=== PATIENT | male | born 1935 | race Caucasian/White ===

== ENCOUNTER → 2016-10-24 | Outpatient (CLI) | payer MEDICARE, BC ==
[~2016-10-24] MED LIST: ASPIRIN PO; ASPIRIN81 M2 PO; AVODART0.5 MG PO; BAYER CHEWABLE81 MG PO; BENTYL10 MG PO; BENTYL20 MG PO; BETAPACE PO; BETAPACE80 MG PO; BUDESONIDE EC3 MG PO; CIPRO PO; CLOPIDOGREL75 MG PO; COZAAR PO; ELIQUIS2.5 MG PO; ELIQUIS5 MG PO; ENTOCORT EC3 MG PO; FINASTERIDE5 M1 PO; FINASTERIDE5 MG PO; FLOMAX0.4 M1 PO; FLOMAX0.4 MG PO; FOLIC ACID1 MG PO; HYDROXYZINE HCL10 MG PO; IBUPROFEN PO; IMDUR-ER60 MG PO; LIPITOR PO; LIPITOR20 MG PO; LORTAB 7.5-5001 TAB PO; LOSARTAN POTASS50 MG PO; METHSCOPOLAMINE5 MG PO; NITROGLYCERIN0.4 MG SL; NITROGYLCERIN; PEPCID AC20 M2 PO; PHENERGAN PO; PYRIDIUM PO; SORINE80 MG PO; ST. JOSEPH ASPI81 M3 PO; TOPROL XL PO
--- NOTE | ~2016-10-24 | US77 ---
STS. [facility] A Service of [facility] & [facility] / [facility] RADIOLOGY TEXT RESULTS PATIENT: BETTIE GIANG LOCATION: [facility] : 35 UNIT #: [id number] AGE: [address]: Bhanu Clark MD SEX: M ORDER DR: [id number] [address] [address] [id number] O MR#: [id number] Acc #: [id number] NAME: BETTIE GIANG : 1935 SEX: M STUDY DATE/TIME: 10/24/2016 12:50 UNIT: SG ROOM: STUDY DESCRIPTION: US Kidney Bilateral Complete Attending Physician: Bhanu Clark M.D. Referring Physician: Bhanu Clark M.D. Ordering Physician: Bhanu Clark M.D. Primary Care Physician: Milton Randall M.D. MEDICAL IMAGING REPORT This report is preliminary unless electronic signature is present. EXAM Renal ultrasound. INDICATION Chronic kidney disease stage 3. Patient had blood work done on March 04, 2016 and at that time had a GFR of 30. TECHNIQUE Mas-scale and color Doppler sonographic images were obtained through the kidneys and bladder. FINDINGS The kidneys measure within the within normal size limits but both demonstrate areas of cortical thinning. Senior Power Scheduler questions dilated calices however I think the appearance is actually secondary to parapelvic cysts. No solid renal masses are seen. Bilateral ureteral jets are seen. Patient does have some prominence of the right renal pelvis which persists postvoid however, again this may be related to the presence of parapelvic cysts. Postvoid residual within the bladder is about 19 mL. IMPRESSION 1. Patient has cortical thinning within both kidneys in keeping with history of medical renal disease. 2. Senior Power Scheduler questions dilated calices bilaterally. I suspect this could reflect the presence of parapelvic cysts based upon prior imaging. This could be better assessed with renal protocol CT or MRI. I do not see any definite solid renal masses. 3. Prominence of the left renal pelvis following voiding may actually again, reflect a parapelvic cyst. Again, CT or MRI would be helpful for further evaluation. 4. Small postvoid residual. [facility] A Service of [facility] & [facility] / [facility] RADIOLOGY TEXT RESULTS PATIENT: BETTIE GIANG LOCATION: [facility] : 35 UNIT #: [id number] AGE: [address]: Bhanu Clark MD SEX: M ORDER DR: Dictated by... Julianne Castro M.D. THIS IS AN ELECTRONICALLY VERIFIED REPORT Julianne Castro M.D. at 10/26/2016 3:03 PM AFF/alem TD: 10/26/2016 05:00 JOB #: [id number] MEDICAL IMAGING REPORT Page 1 of 1
[2016-10-24 13:34] LABS: BASOPHIL% 0.3 % (0-2.5); EOSINOPHIL# 0.2 X10e3 (0-0.7); EOSINOPHIL% 3.2 % (0.0-7.0); HEMATOCRIT 32.8 % (38.0-50.0); HEMOGLOBIN 10.8 gm/dL (13.0-16.0); LYMPHOCYTE# 1.7 X10e3 (1.0-3.5); LYMPHOCYTE% 28.7 % (17.0-45.0); MEAN CELL VOLUME 95.6 FL (83-96); MEAN CORPUSCULAR HEMOGLOBIN 31.6 PG (28-34); MEAN PLATELET VOLUME 6.8 FL (6.5-11.5); MONOCYTE# 0.5 X10e3 (0-1.0); MONOCYTE% 7.8 % (3.0-12.0); NEUTROPHIL# 3.5 X10e3 (1.5-7.1); PLATELET COUNT 193 X10e3 (140-420); RED BLOOD COUNT 3.43 X10e (3.90-5.60); RED CELL DISTRIBUTION WIDTH 13.7 % (11.0-15.5); WHITE BLOOD COUNT 5.9 X10e3 (4.0-10.5)
[2016-10-24 13:37] LABS: URINE APPEARANCE CLEAR; URINE BILIRUBIN NEG (NEG); URINE BLOOD NEG (NEG); URINE COLOR YELLOW; URINE GLUCOSE NEG (NORM); URINE KETONE NEG (NEG); URINE LEUKOCYTE ESTERASE NEG (NEG); URINE NITRATE NEG (NEG); URINE PROTEIN NEG (NEG); URINE UROBILINOGEN 0.2 MG/DL (NORM)
[2016-10-24 13:40] LABS: DIFF IND NO
[2016-10-24 13:41] LABS: MICRO INDICATED? NO
[2016-10-24 13:51] LABS: BILIRUBIN,TOTAL 0.5 mg/dL (0.2-2.0); BUN/CREATININE RATIO 23.68; CALCIUM SERUM 9.1 mg/dL (8.4-10.2); CREATININE SERUM 1.9 mg/dL (0.6-1.4); GLOM FILT RATE Estimated 32.3 mL/min (>60); POTASSIUM 4.6 mmol/L (3.5-5.1); PROTEIN TOTAL SERUM 6.5 g/dL (6.0-8.3)
[2016-10-26 10:44] LABS: MICROALB UR (PNL) 1.1 mg/dL (***)
== END | disposition home or self-care (01) ==
LOC: SGUS 12:35
PROVIDERS: Internal Medicine Nephrology
DX: N18.3 Chronic kidney disease, stage 3 (moderate) (principal); R39.198 Other difficulties with micturition
CPT/HCPCS: 36415; 76775; 80053; 81003; 82043; 82570; 85025

== ENCOUNTER 2016-10-31 10:04 | Observation (INO) | payer MEDICARE, BC ==
--- NOTE | ~2016-10-31 | HP ---
Unit #: [id number] #: [id number] Patient: BETTIE HOLLOWAY [id number] [address] [place], [place] [address] [id number] E MR#: [id number] NAME: BETTIE HOLLOWAY ROOM: Age: 81 Sex: M Admission Date: 10/31/2016 : 1935 Attending Physician: Neto Lo M.D. Primary Care Physician: Milton Randall M.D. HISTORY AND PHYSICAL REASON FOR ADMISSION Chest pain. HISTORY Mr. Holloway is an 81-year-old white male who was walking on his treadmill for his daily exercise routine when he started complaining of pain in the right parasternal region and he slowed down his walking with the pain only to restart with a vengeance and the pain became so severe that he could not continue his exercise. There was some radiation of the pain to the left anterior chest, it was accompanied by mild nausea, mild dizziness, mild diaphoresis and dyspnea. He took 325 mg of aspirin and an extra dose of metoprolol succinate and decided to come to the emergency room. He was evaluated by Dr. Lo and we were asked to admit him. The patient had not had a similar pain in the last two to three years. He exercised on a regular basis, had not complained of any palpitations, dizziness, lightheadedness, ankle edema, orthopnea, nocturnal dyspnea, nocturnal angina or rest angina. He considers himself reasonably active. Recently his renal functions have found to be abnormal and patient was referred to Dr. Clark from nephrology service who planned to see him again today for re-evaluation. The patient's cardiac history dates back to 2000 when he suffered an acute inferior wall myocardial infarction and underwent successful PCI and stent insertion on right coronary artery, which was found to have an in-stent 80 to 90% stenosis in 2009 and he had a redo angioplasty stent insertion and right coronary artery at that time. Because of recurrent chest pain in 2011 he had a cardiac catheterization performed, which showed widely patient stent in right coronary artery and the left coronary system showed no significant stenosis. Since that time, the patient had been doing reasonably well. He has not had any diabetes mellitus. His lipid abnormalities have been under good control and systolic function has been normal with ejection fraction of about 50%. The patient is known to have paroxysmal atrial fibrillation and is maintained a normal sinus rhythm with sotalol and long-term anticoagulation with Eliquis. Does not smoke or abuse alcohol. He denies any history of strokes, transient ischemia attacks, rheumatic fever or heart murmur. SOCIAL AND PERSONAL HISTORY He stopped smoking a number of years ago and does not abuse alcohol. FAMILY HISTORY His mother had an MA in her 60s. PHYSICAL EXAMINATION Unit #: [id number] #: [id number] Patient: BETTIE HOLLOWAY GENERAL: Reveals an elderly male in no acute distress. NECK: There is no jugular venous distention, both carotids have a normal upstroke without any bruits. There is trace of ankle edema bilaterally. CARDIAC: Shows apical impulses palpable in fifth intercostal space and midclavicular line and is normal. Both heart sounds are normal. No rubs or clicks are audible. There is no murmur. CHEST: Chest examination shows tenderness along the third or fourth costochondral junction, which reproduces a pain that brought him to the hospital. There is good air entry bilaterally without any rales or rhonchi. ABDOMEN: Soft, nontender, anterior abdominal wall, there are no masses or organomegaly. RECTAL: No done. BREAKFAST SERVER: Within normal limits. DIAGNOSTIC STUDIES LABORATORY STUDIES: Serum BUN is 25, creatinine 2.0, GFR 30.4. Potassium 4.1, magnesium 1.8. Cardiac enzymes at the time of admission were normal with troponin of 0.05. Repeat cardiac enzymes are awaited. Electrocardiogram shows sinus bradycardia, evidence of old inferior wall MA with Q waves in leads II and AVF. Hemoglobin is 11.1, hematocrit 33.1, 5,100 white blood cells are seen with a normal differential. DIAGNOSIS 1. Chest pain secondary to costochondritis. 2. History of old inferior wall myocardial infarction. 3. Status post PCI with stent insertion right coronary artery 2000, redo PCI with stent insertion right coronary artery for in-stent 90% stenosis. Stent found to be patent in 2011. 4. Paroxysmal atrial fibrillation. 5. Hypertensive heart disease. 6. Mild chronic kidney disease. 7. Peripheral vascular disease. PLAN The patient will be admitted to the hospital for observation. I did repeat electrocardiograms and cardiac enzymes will be checked to rule out a myocardial infarction, which I doubt exists. An exercise Cardiolite scan would be done tomorrow to rule out any reversible perfusion abnormalities, in addition to his old inferior wall MA. Dr. Clark or his associates will be requested to see the patient in consult. Dictated by Juan Jose Moses/ewa TD: 10/31/2016 11:00 JOB #: [id number] CC: [facility] Unit #: [id number] #: [id number] Patient: BETTIE HOLLOWAY M.D. HISTORY AND PHYSICAL Page 1 of 1 X Ezra Worley MD X HISTORY AND PHYSICAL
--- NOTE | ~2016-10-31 | TH ---
Unit #: [id number] #: [id number] Patient: BETTIE GIANG [id number] [address] [address] [id number] I MR#: [id number] NAME: BETTIE GIANG. : 1935 SEX: M STUDY DATE/TIME: 11/01/2016 UNIT: C3A PCU ROOM: [facility] STUDY DESCRIPTION: Attending Physician: Ezra Worley M.D. Primary Care Physician: Milton Randall M.D. CARDIOLOGY REPORT EXAM Lexiscan Cardiolite stress test, nuclear portion. PROCEDURE Using technetium 99m labeled Cardiolite, rest and stress SPECT images were obtained. Multiple SPECT images were obtained in various views including horizontal and vertical long axis and short axis views of the left ventricle. Images were obtained by gated SPECT method. The patient was administered 11.97 mCi of Cardiolite at rest. The patient was administered 36 mCi of Cardiolite after Lexiscan infusion was completed. On the stress images, there is a medium-sized area of severe decreased isotope activity involving the inferior and the inferolateral wall of the left ventricle. The rest images show normal perfusion. Comparing rest and stress images, there is a medium-sized area of stress-induced ischemia involving the inferior and the inferolateral wall. The left ventricular ejection fraction is calculated to be 56%. There is mild hypokinesis of the inferolateral wall. CONCLUSION 1. Suspicion for a medium-sized area of stress-induced ischemia involving the inferolateral wall of the left ventricle. 2. The left ventricular ejection fraction is calculated to be 56%. 3. There is mild hypokinesis involving the inferolateral wall. 4. High suspicion for coronary artery disease. Suspicion for lesion involving the RCA or the circumflex territory. Clinical correlation is requested. Dictated by... Juan Jose Wallace TD: 11/01/2016 12:50 JOB #: [id number] Unit #: [id number] #: [id number] Patient: BETTIE GIANG CARDIOLOGY REPORT Page 1 of 1 X Deidre Vizcaino MD <ELECTRONICALLY SIGNED> 01/28/17 1428 CARDIOLOGY REPORT
--- NOTE | ~2016-10-31 | ST ---
Unit #: [id number] #: [id number] Patient: BETTIE GIANG [id number] [address] [address] [id number] I MR#: [id number] NAME: BETTIE GIANG. : 1935 SEX: M STUDY DATE/TIME: 11/01/2016 UNIT: C3A PCU ROOM: [facility] STUDY DESCRIPTION: Walking Lexiscan stress test Attending Physician: Ezra Worley M.D. Primary Care Physician: Milton Randall M.D. CARDIOLOGY REPORT PROCEDURE PERFORMED Lexiscan Cardiolite stress test. NOTE: It is noted the patient did attempt to do a regular Cardiolite stress test but was unable to achieve the maximum target heart rate within 7 minutes without the patient having fatigue, leg cramps and shortness of breath and could not reach his maximum target heart rate. Had to change to a Lexiscan Cardiolite stress test due leg cramps. REPORT Baseline EKG - Sinus bradycardia, heart rate 56 beats per minute, poor R wave progression, nonspecific ST-T wave abnormalities in inferior leads. Lexiscan is a 4-minute test with Lexiscan being injected within the first minute, followed by Cardiolite. FINDINGS 1. EKG during the test showed downsloping in inferior and anterolateral leads with 0.[address] depression in anterolateral leads. 2. The patient had no complaints of chest pain, palpitations or dizziness. Had increased shortness of breath and fatigue, which resolved in recovery phase. 3. Maximum blood pressure response was 157/83 mmHg with a maximum heart rate response of 76 beats per minute. 4. Cardiolite was injected after Lexiscan within the first minute of the test. Radionuclide tests pending. Please correlate with nuclear images. Dictated by... Edith Earl A.P.R.N. for Juan Jose Wallace/aissatou TD: 11/01/2016 11:12 JOB #: [id number] Unit #: [id number] #: [id number] Patient: BETTIE GIANG CARDIOLOGY REPORT Page 1 of 1 X Edith Earl APRN CARDIOLOGY REPORT
--- NOTE | ~2016-10-31 | EKG ---
PATIENT: BETTIE GIANG UNIT #: [id number] Ventricular Rate: 53 BPM Atrial Rate: 53 BPM P-R Interval: 152 ms QRS Duration: 84 ms Q-T Interval: 486 ms QTC Calculation(Bezet): 456 ms Calculated R [place]: 20 degrees Calculated T [place]: 33 degrees Diagnosis Line: Sinus bradycardia with Premature atrial complexes Diagnosis Line: Otherwise normal ECG Diagnosis Line: When compared with ECG of 20-MAY-2014 07:27, Diagnosis Line: Premature atrial complexes are now Present Diagnosis Line: Confirmed by JEFE AGUSTIN MD ([id number]) on 10/31/2016 Diagnosis Line: 10:20:46 PM INTERPRETING MD: NIKOLE VIRGEN
--- NOTE | ~2016-10-31 | CR72 ---
[facility] A Service of [facility] RADIOLOGY TEXT RESULTS PATIENT: BETTIE GIANG LOCATION: [facility] 318-01 : 35 UNIT #: [id number] AGE: [address]: Ezra Worley MD SEX: M ORDER DR: [id number] [facility] [address]. [place], [place] [address] [id number] MR#: [id number] Acc #: [id number] NAME: BETTIE GIANG. : 1935 SEX: M STUDY DATE/TIME: 10/31/2016 8:51 UNIT: [facility] ROOM: STUDY DESCRIPTION: CR Chest Single View Portable Attending Physician: Neto Lo M.D. Ordering Physician: Neto Lo M.D. Primary Care Physician: Milton Randall M.D. MEDICAL IMAGING REPORT This report is preliminary unless electronic signature is present EXAM Portable chest INDICATION Right-sided chest pain and shortness of breath this morning. COMPARISON 05/19/2014. FINDINGS The lungs are well expanded. No acute infiltrate. The heart size is normal. Atherosclerotic calcification of the aorta. IMPRESSION No active disease. Dictated by... Richard Valverde M.D. THIS IS AN ELECTRONICALLY VERIFIED REPORT Richard Valverde M.D. at 10/31/2016 4:33 PM NIECY/oliver TD: 10/31/2016 09:41 JOB #: [id number] MEDICAL IMAGING REPORT Page 1 of 1 COPY
--- NOTE | ~2016-10-31 | HP ---
Unit #: [id number] #: [id number] Patient: BETTIE GIANG [id number] [address] [address] [id number] I MR#: [id number] NAME: BETTIE GIANG. ROOM: 318 Age: 81 Sex: M Admission Date: 10/31/2016 : 1935 Attending Physician: Ezra Worley M.D. Primary Care Physician: Milton Randall M.D. HISTORY AND PHYSICAL ADDENDUM The patient was admitted to the hospital with chest pain which was thought to be secondary to costochondritis. However, due to known coronary artery disease with previous PCI and stents, he was admitted for further observation. Cardiac enzymes were obtained and he ruled out for myocardial infarction. He did have some brief paroxysmal atrial fibrillation on telemetry. He converted to sinus rhythm with medications. He underwent Lexiscan Cardiolite stress test on 11/01/2016 which revealed suspicion for a medium size area of stress-induced ischemia involving the inferolateral wall of the left ventricle. Ejection fraction was 56%. There was suspicion for a lesion involving the right coronary artery or left circumflex territory. The patient was recommended for cardiac catheterization or medical management due to comorbidities including an elevated creatinine of 2.0 and known chronic kidney disease. The patient opted for medical management and has an appointment with Dr. Clark within two weeks as an outpatient. He has been started on topical nitrates. His Eliquis dose was decreased to 2.5 mg p.o. b.i.d. due to renal function and age. His losartan was discontinued due to renal insufficiency. He has been instructed to follow up with Dr. Worley on 11/10/2016 at 1:45 p.m. If chest pain or shortness of breath recurs, he has been advised to seek medical attention. He could be considered for cardiac catheterization if symptoms cannot be treated medically. Dictated by Katy Nugent APRN for Juan Jose Moses/china TD: 11/02/2016 16:14 JOB #: [id number] Unit #: [id number] #: [id number] Patient: BETTIE GIANG HISTORY AND PHYSICAL Page 1 of 1 X X HISTORY AND PHYSICAL
[2016-10-31 09:12] LABS: BASOPHIL% 0.4 % (0-2.5); EOSINOPHIL# 0.2 X10e3 (0-0.7); EOSINOPHIL% 4.6 % (0.0-7.0); HEMATOCRIT 33.1 % (38.0-50.0); HEMOGLOBIN 11.1 gm/dL (13.0-16.0); LYMPHOCYTE# 1.5 X10e3 (1.0-3.5); LYMPHOCYTE% 29.5 % (17.0-45.0); MEAN CELL VOLUME 95.4 FL (83-96); MEAN CORPUSCULAR HGB CONC 33.6 g/dL (30-36); MEAN PLATELET VOLUME 6.7 FL (6.5-11.5); MONOCYTE# 0.5 X10e3 (0-1.0); MONOCYTE% 9.5 % (3.0-12.0); NEUTROPHIL# 2.8 X10e3 (1.5-7.1); PLATELET COUNT 193 X10e3 (140-420); RED BLOOD COUNT 3.46 X10e (3.90-5.60); RED CELL DISTRIBUTION WIDTH 14.3 % (11.0-15.5); WHITE BLOOD COUNT 5.1 X10e3 (4.0-10.5)
[2016-10-31 09:14] LABS: DIFF IND NO
[2016-10-31 09:23] LABS: POC - CKMB <1.0 ng/mL (0.0-7.9); POC - TROPONIN <0.05 ng/mL (<=0.05)
[2016-10-31 09:24] LABS: PROTHROMBIN TIME (PATIENT) 10.7 SECONDS (9.6-11.5)
[2016-10-31 09:34] LABS: ALBUMIN SERUM 3.9 g/dL (3.5-5.0); BILIRUBIN, DIRECT 0.1 mg/dL (0.0-0.2); BILIRUBIN,INDIRECT 0.5 mg/dL (0.0-0.9); BILIRUBIN,TOTAL 0.6 mg/dL (0.2-2.0); BUN/CREATININE RATIO 12.5; CALCIUM SERUM 9.4 mg/dL (8.4-10.2); GLOM FILT RATE Estimated 30.4 mL/min (>60); POTASSIUM 4.1 mmol/L (3.5-5.1); PROTEIN TOTAL SERUM 6.9 g/dL (6.0-8.3)
[~2016-10-31 10:04] MED LIST changes: -ASPIRIN81 M2 PO; -BETAPACE PO; -CLOPIDOGREL75 MG PO; -ELIQUIS2.5 MG PO; -IMDUR-ER60 MG PO; -PEPCID AC20 M2 PO
[2016-10-31 11:32] LABS: CHOLESTEROL 149 mg/dL (0-200); HDL CHOLESTEROL 47 mg/dL (29-75); LDL CHOLESTEROL 80 mg/dL ([, -130]); LDL/HDL RATIO 2 RATIO (0-4); TRIGLYCERIDES 111 mg/dL (10-160)
[2016-10-31 17:44] LABS: CK TOTAL 58 IU/L (36-174)
[2016-10-31 23:47] LABS: CK TOTAL 56 IU/L (36-174)
[2016-11-01 12:13] LABS: BUN/CREATININE RATIO 14.11; CREATININE SERUM 1.7 mg/dL (0.6-1.4)
[2016-11-01] MEDS ORDERED: BETAPACE PO (16:16)
[2016-11-01] MEDS ORDERED: ELIQUIS2.5 MG PO (16:17)
[2016-11-01] MEDS ORDERED: IMDUR-ER60 MG PO (16:18)
== END 2016-11-01 16:45 | disposition home or self-care (01) ==
LOC: CED 10:04 → CEDOF 10:30 → C3A PCU 13:18
PROVIDERS: Emergency Medicine; Internal Medicine Cardiovascular Disease
DX: R07.9 Chest pain, unspecified (principal); Z87.891 Personal history of nicotine dependence; I25.2 Old myocardial infarction; I48.0 Paroxysmal atrial fibrillation; I13.10 Hypertensive heart and chronic kidney disease without heart failure, with stage 1 through stage 4 chronic kidney disease, or unspecified chronic kidney disease; N18.9 Chronic kidney disease, unspecified; Z79.899 Other long term (current) drug therapy; Z79.82 Long term (current) use of aspirin; Z98.890 Other specified postprocedural states; Z98.49 Cataract extraction status, unspecified eye
CPT/HCPCS: 36415; 71010; 78452; 80048; 80061; 80076; 82550; 82553; 84484; 85025; 85610; 85730; 93005; 93017; 94760; 99285; A9500; G0378; J2785

== ENCOUNTER → 2016-11-10 | Outpatient (CLI) | payer MEDICARE, BC ==
[~2016-11-10] MED LIST changes: +ASPIRIN81 M2 PO; +BETAPACE PO; +CLOPIDOGREL75 MG PO; +ELIQUIS2.5 MG PO; +IMDUR-ER60 MG PO; +PEPCID AC20 M2 PO
[2016-11-10 15:52] LABS: BUN/CREATININE RATIO 13.33; CALCIUM SERUM 9.1 mg/dL (8.4-10.2); CREATININE SERUM 1.8 mg/dL (0.6-1.4); GLOM FILT RATE Estimated 34.5 mL/min (>60); POTASSIUM 4.2 mmol/L (3.5-5.1)
== END | disposition home or self-care (01) ==
LOC: CLAB 15:08
PROVIDERS: Internal Medicine Cardiovascular Disease
DX: N18.9 Chronic kidney disease, unspecified (principal); I25.10 Atherosclerotic heart disease of native coronary artery without angina pectoris
CPT/HCPCS: 36415; 80048

== ENCOUNTER 2016-11-14 07:23 | Observation (INO) | payer MEDICARE, BC ==
--- NOTE | ~2016-11-14 | DS ---
Unit #: [id number] #: [id number] Patient: BETTIE GIANG [id number] [address] [address] [id number] I MR#: [id number] NAME: BETTIE GIANG. ROOM: 565 Age: 81 Sex: M Admission Date: 11/14/2016 : 1935 Discharge Date: 11/15/2016 Attending Physician: Ezra Worley M.D. Primary Care Physician: Milton Randall M.D. DISCHARGE SUMMARY DISCHARGE DIAGNOSES 1. Recent non-STEMI in September 2016, culprit vessel RCA; PTCA in 2000, redo PCI with stent to RCA for in-stent 90% stenosis in 2009, and PTCA/drug-eluting stent to RCA for 90% in-stent stenosis on 11/14/2016. 2. History of old inferior wall myocardial infarction in 2000. 3. Paroxysmal atrial fibrillation on chronic anticoagulation with Eliquis. 4. Chronic kidney disease. 5. Hypertension. 6. Peripheral vascular disease. 7. Lexiscan Cardiolite stress test 11/01/2016, suspicious for stress-induced ischemia in inferior lateral koehler LV, EF 56%. DISCHARGE MEDICATIONS 1. Eliquis 2.5 mg p.o. twice a day. 2. Bentyl 10 mg p.o. 4 times a day. 3. Hydroxyzine hydrochloride 10 mg p.o. t.i.d. 4. Sotalol 40 mg p.o. twice a day. 5. Lipitor 20 mg p.o. once a day. 6. Finasteride 5 mg p.o. daily. 7. Aspirin 81 mg p.o. daily. 8. Plavix 75 mg p.o. daily. 9. Imdur-ER 60 mg p.o. daily. 10. Folic acid 1 mg p.o. daily. HOSPITAL COURSE This is an 81-year-old male who is a patient of Dr. Worley. He has a significant history of coronary artery disease with multiple stents in the past. In 2000, he had an inferior wall CT. He underwent a cardiac cath with PCI and stent to his RCA. In 2009, he had a re-do PTCA and stent with RCA for an 80-90% in-stent stenosis. In 2011, he underwent another cardiac cath for chest pain which revealed a widely patent RCA stent and left coronary arteries with no stenosis. On 10/31/2016, he was admitted to the hospital with chest pain. An CT was ruled out with cardiac enzymes and EKG. On 11/01/2016, he underwent a Lexiscan Cardiolite stress test which revealed findings suspicious for a medium sized area of stress-induced ischemia in the inferior lateral wall of the LV and an EF of 56%. Due to his chronic kidney disease and a creatinine of 2, the patient decided to undergo medical management at that time. He was seen in our office on November [address] Worley. Reported that he had one additional episode of chest pain at home that was suggestive of ischemic heart disease. It was decided to proceed with a cardiac cath with a planned PCI. Precautions were taken to reduce the risk of Unit #: [id number] #: [id number] Patient: BETTIE GIANG contrast-induced nephropathy. On 11/14/2016, he was admitted for a staged PCI. He underwent PCI to the PLV of his RCA which was reduced from 90% in-stent stenosis to 0% with a 3.5 x 20 mm Synergy drug-eluting stent. He also underwent PCI to the mid-RCA where a 75% stenosis was reduced to 0% with a Synergy drug-eluting stent for 4.0 mm x 28 mm. His MB-index the following day, the patient had no EKG changes. He had no recurrent chest pain. His MB-index 12.5. Cholesterol levels were obtained. His cholesterol was 110, triglycerides 59, LDL 56, and HDL 42. He will be continued on his home dose of statin. His right groin is healing well without hematoma. There is no bruit noted. He will be continued on dual antiplatelet therapy as well as Eliquis. The aspirin will be discontinued at 1 month. He is stable for discharge today. ASSESSMENT VITAL SIGNS: Temperature 98.2, heart rate 54, respiratory rate 18, blood pressure 143/65. GENERAL: Alert and oriented 81-year-old white male up in chair. In no acute distress. HEART: S1 and S2, irregularly irregular rhythm. No murmurs or gallops appreciated. LUNGS: Clear with nonlabored respirations. ABDOMEN: Soft, nontender, nondistended. Bowel sounds positive. EXTREMITIES: Lower extremities with no edema. DP and PT pulses were 2+. Right groin was soft, dry with slight bruising, but no hematoma. No bruit appreciated. DIAGNOSTIC STUDIES LABORATORY RESULTS: Sodium 138, potassium 4, chloride 107, BUN 20, creatinine 1.5, glucose 100, hemoglobin 9.9, hematocrit 30, white blood cell count 5.9, platelets 178. MVI-index 12.5. CARDIOVASCULAR: Electrocardiogram was sinus bradycardia with a rate of 54, no new abnormalities noted. DISCHARGE INSTRUCTIONS 1. The patient will be discharged home today. 2. Follow up with Dr. Worley in his office January 05 at 3 p.m. 3. The patient will be continued on Plavix and aspirin as well as Eliquis. The aspirin will be stopped in 1 month. Continue statin therapy. Continue his beta-jake. Post-cath orders will be given prior to discharge. Cardiac rehab has been consulted for rehab in the [facility] program. 4. We will check BMP in 1 week to evaluate creatinine. Dictated by... Michelle Ryder APRN for Juan Jose Moses/rodney TD: 11/15/2016 23:12 JOB #: [id number] Unit #: [id number] #: [id number] Patient: BETTIE GIANG DISCHARGE SUMMARY Page 1 of 1 X X DISCHARGE SUMMARY
--- NOTE | ~2016-11-14 | EKG ---
PATIENT: BETTIE GIANG UNIT #: [id number] Ventricular Rate: 49 BPM Atrial Rate: 49 BPM P-R Interval: 170 ms QRS Duration: 90 ms Q-T Interval: 478 ms QTC Calculation(Bezet): 431 ms P [place]: 63 degrees Calculated R [place]: 36 degrees Calculated T [place]: 16 degrees Diagnosis Line: Marked sinus bradycardia Diagnosis Line: Abnormal ECG Diagnosis Line: When compared with ECG of 31-OCT-2016 08:31, Diagnosis Line: Premature atrial complexes are no longer Present Diagnosis Line: Confirmed by DEVIN SPRINGER MD ([id number]) on Diagnosis Line: 11/14/2016 11:29:10 PM INTERPRETING MD: MISTI
--- NOTE | ~2016-11-14 | EKG ---
PATIENT: BETTIE GIANG UNIT #: [id number] Ventricular Rate: 52 BPM Atrial Rate: 52 BPM P-R Interval: 170 ms QRS Duration: 90 ms Q-T Interval: 492 ms QTC Calculation(Bezet): 457 ms P [place]: 68 degrees Calculated R [place]: 46 degrees Calculated T [place]: 62 degrees Diagnosis Line: Sinus bradycardia Diagnosis Line: Otherwise normal ECG Diagnosis Line: When compared with ECG of 14-NOV-2016 08:04, Diagnosis Line: (unconfirmed) Diagnosis Line: No significant change was found Diagnosis Line: Confirmed by DEVIN SPRINGER MD ([id number]) on Diagnosis Line: 11/14/2016 11:30:17 PM INTERPRETING MD: MISTI
--- NOTE | ~2016-11-14 | EKG ---
PATIENT: BETTIE GIAGN UNIT #: [id number] Ventricular Rate: 53 BPM Atrial Rate: 53 BPM P-R Interval: 160 ms QRS Duration: 84 ms Q-T Interval: 516 ms QTC Calculation(Bezet): 484 ms P [place]: 70 degrees Calculated R [place]: 42 degrees Calculated T [place]: -56 degrees Diagnosis Line: Sinus bradycardia Diagnosis Line: Inferior infarct , age undetermined Diagnosis Line: Abnormal ECG Diagnosis Line: When compared with ECG of 14-NOV-2016 12:46, Diagnosis Line: T wave inversion now evident in Inferior leads Diagnosis Line: Confirmed by JEFE AGUSTIN MD ([id number]) on 11/15/2016 Diagnosis Line: 10:41:26 PM INTERPRETING MD: NIKOLE VIRGEN
[~2016-11-14 07:23] MED LIST changes: -ASPIRIN81 M2 PO; -CLOPIDOGREL75 MG PO; -PEPCID AC20 M2 PO
[2016-11-14 07:50] LABS: HEMATOCRIT 35.7 % (38.0-50.0); HEMOGLOBIN 11.8 gm/dL (13.0-16.0); MEAN CELL VOLUME 96.5 FL (83-96); MEAN CORPUSCULAR HGB CONC 33.2 g/dL (30-36); MEAN PLATELET VOLUME 6.8 FL (6.5-11.5); RED BLOOD COUNT 3.7 X10e (3.90-5.60); RED CELL DISTRIBUTION WIDTH 14.9 % (11.0-15.5); WHITE BLOOD COUNT 5.9 X10e3 (4.0-10.5)
[2016-11-14 08:04] LABS: PROTHROMBIN TIME (PATIENT) 10.7 SECONDS (9.6-11.5)
[2016-11-14 08:17] LABS: BUN/CREATININE RATIO 12.22; CALCIUM SERUM 9.1 mg/dL (8.4-10.2); CREATININE SERUM 1.8 mg/dL (0.6-1.4); GLOM FILT RATE Estimated 34.5 mL/min (>60)
[2016-11-14 20:41] LABS: ANGIO %MB 10.6 % (0.0-4.0); ANGIO MB 8.8 ng/ml
[2016-11-15 03:37] LABS: BASOPHIL% 0.3 % (0-2.5); EOSINOPHIL# 0.2 X10e3 (0-0.7); EOSINOPHIL% 2.8 % (0.0-7.0); HEMOGLOBIN 9.9 gm/dL (13.0-16.0); LYMPHOCYTE# 1.4 X10e3 (1.0-3.5); LYMPHOCYTE% 23.8 % (17.0-45.0); MEAN CELL VOLUME 95.6 FL (83-96); MEAN CORPUSCULAR HEMOGLOBIN 31.7 PG (28-34); MEAN CORPUSCULAR HGB CONC 33.1 g/dL (30-36); MEAN PLATELET VOLUME 6.7 FL (6.5-11.5); MONOCYTE# 0.5 X10e3 (0-1.0); MONOCYTE% 8.3 % (3.0-12.0); NEUTROPHIL# 3.9 X10e3 (1.5-7.1); NEUTROPHIL% 64.8 % (40-75); PLATELET COUNT 178 X10e3 (140-420); RED BLOOD COUNT 3.14 X10e (3.90-5.60); RED CELL DISTRIBUTION WIDTH 15.2 % (11.0-15.5); WHITE BLOOD COUNT 5.9 X10e3 (4.0-10.5)
[2016-11-15 03:39] LABS: DIFF IND NO
[2016-11-15 04:08] LABS: BUN/CREATININE RATIO 13.33; CALCIUM SERUM 8.5 mg/dL (8.4-10.2); CREATININE SERUM 1.5 mg/dL (0.6-1.4); GLOM FILT RATE Estimated 43.1 mL/min (>60)
[2016-11-15 04:17] LABS: ANGIO %MB 12.5 % (0.0-4.0); ANGIO MB 13.1 ng/ml
[2016-11-15] MEDS ORDERED: CLOPIDOGREL75 MG PO (10:55)
== END 2016-11-15 12:22 | disposition home or self-care (01) ==
LOC: CCVL 07:23 → CEDOF 18:29 → C5C 18:29 → CEDOF 18:36 → C5C 18:36
PROVIDERS: Internal Medicine Cardiovascular Disease
DX: T82.855A Stenosis of coronary artery stent, initial encounter (principal); Y71.3 Surgical instruments, materials and cardiovascular devices (including sutures) associated with adverse incidents; I25.118 Atherosclerotic heart disease of native coronary artery with other forms of angina pectoris; Z95.5 Presence of coronary angioplasty implant and graft; I25.2 Old myocardial infarction; I48.0 Paroxysmal atrial fibrillation; Z79.01 Long term (current) use of anticoagulants; I73.9 Peripheral vascular disease, unspecified; I12.9 Hypertensive chronic kidney disease with stage 1 through stage 4 chronic kidney disease, or unspecified chronic kidney disease; N18.9 Chronic kidney disease, unspecified; Z87.891 Personal history of nicotine dependence; Z82.49 Family history of ischemic heart disease and other diseases of the circulatory system
CPT/HCPCS: 92921; 93458; C9600; 36415; 80048; 80061; 82550; 82553; 85025; 85027; 85049; 85347; 85610; 85730; 93005; C1725; C1760; C1769; C1874; C1887; C1894; G0378; J0153; J0690; J1327; J1644; J2250; J3010

== ENCOUNTER 2017-01-28 14:55 | Observation (INO) | payer MEDICARE, BC ==
[~2017-01-28] VITALS: Ht 177.8 cm; Wt 80.4 kg
--- NOTE | ~2017-01-28 | EKG ---
PATIENT: BETTIE GIANG UNIT #: [id number] Ventricular Rate: 104 BPM Atrial Rate: 76 BPM QRS Duration: 88 ms Q-T Interval: 404 ms QTC Calculation(Bezet): 531 ms Calculated R [place]: 9 degrees Calculated T [place]: -60 degrees Diagnosis Line: Atrial fibrillation with rapid ventricular Diagnosis Line: response Diagnosis Line: Nonspecific ST and T wave abnormality Diagnosis Line: Abnormal ECG Diagnosis Line: When compared with ECG of 28-JAN-2017 15:09, Diagnosis Line: Nonspecific T wave abnormality now evident in Diagnosis Line: Lateral leads Diagnosis Line: QT has lengthened Diagnosis Line: Confirmed by DEVIN SPRINGER MD ([id number]) on Diagnosis Line: 01/30/2017 8:27:30 PM INTERPRETING : MISTI
--- NOTE | ~2017-01-28 | DS ---
Unit #: [id number] #: [id number] Patient: BETTIE GIANG [id number] [address] [address] [id number] I MR#: [id number] NAME: BETTIE GIANG. ROOM: 329 Age: 81 Sex: M Admission Date: 01/28/2017 : 1935 Discharge Date: 01/30/2017 Attending Physician: Ezra Worley M.D. Primary Care Physician: Milton Randall M.D. DISCHARGE SUMMARY DISCHARGE DIAGNOSES 1. Chest pain, ruled out for acute myocardial infarction. 2. Permanent atrial fibrillation with rapid ventricular response converted to controlled ventricular rate. 3. History of non-ST elevation myocardial infarction September 2016 with percutaneous coronary intervention and drug-eluting stent to the mid right coronary artery and posterior left ventricular branch of the right coronary artery, 11/14/2016. 4. History of inferior wall myocardial infarction in 2000 status post percutaneous coronary intervention and stent placement to the right coronary artery. 5. Hypertension. 6. Hyperlipidemia. 7. Chronic kidney disease. 8. Preserved left ventricular systolic function with ejection fraction of 56%. DISCHARGE MEDICATIONS 1. Eliquis 2.5 mg daily. 2. Bentyl 10 mg q.i.d. 3. Hydroxyzine 10 mg t.i.d. 4. Betapace 60 mg b.i.d. 5. Lipitor 80 mg q.h.s. 6. Proscar 5 mg daily. 7. Aspirin 81 mg daily. 8. Plavix 75 mg daily. 9. Imdur 60 mg daily. 10. Folic acid 1 mg daily. 11. Famotidine 1 tablet daily (over the counter). HOSPITAL COURSE This is an 81-year-old male who is known to Dr. Worley who had a non-ST elevation myocardial infarction with drug-eluting stents to the right coronary artery and PLV branch in November. He has known atrial fibrillation and has been on anticoagulation with Eliquis. His rhythm has been managed with sotalol. He came to the emergency room for evaluation of chest pain and was ruled out for an acute myocardial infarction where his troponin was negative for 3 sets. He had atrial fibrillation with rapid ventricular response, but his rate was in the low 100s. He was treated with a heparin drip initially but was discontinued. Metoprolol was discontinued, and the patient had an increase in sotalol for rate control. He was continued on oral nitrates. His home dose of Lipitor was increased to 80 mg daily. His chest pain resolved. His repeat echocardiogram showed QTc of 531. It was Unit #: [id number] #: [id number] Patient: BETTIE GIANG felt the patient could continue on medical management for coronary artery disease. He is on dual antiplatelet therapy with aspirin and Plavix. TSH was normal at 4.3. He has good control of his cholesterol levels. He has known chronic kidney disease, and his creatinine was at its baseline of 1.8. His heart rate improved on sotalol. Blood pressure remained stable. He is stable for discharge today. ASSESSMENT VITAL SIGNS: Blood pressure 128/74, heart rate 80. HEART: S1, S2 with irregularly irregular rhythm. LUNGS: With good breath sounds in both lungs. ABDOMEN: Soft, nontender with bowel sounds present. EXTREMITIES: Without leg edema. DIAGNOSTIC STUDIES LABORATORY STUDIES: Glucose 107, BUN 22, creatinine 1.8, sodium 143, potassium 4.5. Cholesterol 187, triglycerides 56, LDL 107, HDL 69. TSH 4.43. White count 6.3, hemoglobin 15.4, hematocrit 46.9, platelet count 174. CARDIOVASCULAR STUDIES: Electrocardiogram - Atrial fibrillation with a rate of 104 beats per minute with old inferior infarct with (1) noted in the inferior leads. QTc 531 msec. DISCHARGE INSTRUCTIONS 1. The patient will be discharged home today. 2. Follow up with Dr. Worley on March 14 at 2:30 p.m. 3. The patient will continue on dual antiplatelet therapy with aspirin and Plavix. Lipitor has been increased to 80 mg q.h.s. 4. The patient is to continue on the increased dose of sotalol at 60 mg b.i.d. 5. He will need to check electrocardiogram in the office for QTc prolongation. 6. No other changes in his medication regimen. Dictated by... Rome Maldonado A.P.R.N. for Juan Jose Wallace/aissatou TD: 01/30/2017 15:01 JOB #: [id number] DISCHARGE SUMMARY Page 1 of 1 X Rome Maldonado APRN X DISCHARGE SUMMARY
--- NOTE | ~2017-01-28 | HP ---
Unit #: [id number] #: [id number] Patient: BETTIE HOLLOWAY [id number] [facility]. [place] [id number] [facility]. [place], [place] [address] [id number] I MR#: [id number] NAME: BETTIE HOLLOWAY. ROOM: 329 Age: 81 Sex: M Admission Date: 01/28/2017 : 1935 Attending Physician: Ezra Worley M.D. Primary Care Physician: Milton Randall M.D. HISTORY AND PHYSICAL CHIEF COMPLAINT Chest discomfort. HISTORY OF PRESENT ILLNESS Mr. Holloway is well known to Dr. Worley, as well as Dr. Vizcaino, who presented this admission with complaints of chest discomfort. In November of 2016 he underwent coronary catheterization with PCI. At that time his left main artery was normal. His left anterior descending and diagonal branches were all normal. Circumflex was nondominant. Small caliber vessel and normal. The right coronary artery was a large dominant vessel and the proximal third part of the artery it was normal. The mid section revealed the presence of his stent, which was patent. At the junction of the proximal 2/3 and distal 1/3 there was a 75% to 80% stenosis. There was an in-stent restenosis at 95% in the posterior left ventricular branch of the right coronary artery. He underwent drug-eluting stent to the PLV branch of the right coronary artery. He presented this admission stating at 2:00 a.m. Monday morning he awoke from sleep with a central sternal dull chest discomfort that radiated through his back. He says he has a hiatal hernia and he thought maybe that was his hernia pain so he started drinking water. The water did not relieve his pain so ultimately he took two Nitroglycerin, which relieved his pain. He went back to sleep. He awoke Monday morning feeling okay and then around 2:00 in the afternoon he had the recurrence of the central sternal dullness radiating through his back, accompanied with nausea. He took two more Nitroglycerin, which relieved his pain and his demanded that he present to the hospital. He states by the time he got to the emergency room he was chest pain free. He has had no recurrence of his chest pain since then. He is currently on a heparin drip. He has had four negative Troponins this admission. PAST MEDICAL HISTORY Arteriosclerotic heart disease with PCI and stents in 2000 and in 2009 and then recent stenting in 11/2016. He has a history of paroxysmal AFib now permanent on Eliquis. Chronic kidney disease. Had a history of a non ST elevated myocardial infarction in September of 2016. History of MA in 2000. History of hypertension. History of peripheral vascular disease. In October of 2016 he had a positive stress test, hiatal hernia. His Cardiolite stress test showed an EF of 56%. PAST SURGICAL HISTORY Left inguinal hernia repair and toe surgery. SOCIAL HISTORY , retired, no alcohol. No illicit drug use. No tobacco. Unit #: [id number] #: [id number] Patient: BETTIE HOLLOWAY FAMILY HISTORY Mother had arteriosclerotic heart disease and myocardial infarction in her 60s. Father is from a stroke. ALLERGIES No known allergies. HOME MEDICATIONS Lipitor 20 mg daily; finasteride 5 mg daily; Bentyl 10 mg 4 times daily; folic acid 1 mg daily; hydroxyzine 10 mg 3 times a day; Betapace 40 mg twice daily; Eliquis 2.5 mg twice daily; Imdur 60 mg daily; Plavix 75 mg daily. REVIEW OF SYSTEMS All negative except for history of present illness. There is no melena. No hematuria. No lower extremity edema. No syncope. No near syncope. PHYSICAL EXAMINATION GENERAL: Well developed, well nourished, elderly white male sitting in the chair in no acute distress. VITAL SIGNS: Temp 98.0, pulse 80, respirations 18, blood pressure 113/94. On admission he was 98/73. HEENT: Normocephalic atraumatic. No xanthelasma. Pupils equal, round, and reactive to light. Extraocular movements intact. NECK: Supple. No jugular venous distention. No elevated CVP. LUNGS: Clear to auscultation anteriorly, posteriorly and bilaterally. COR: S1 and S2. Positive harsh systolic murmur 2/6, loudest at the apex. No lift. PMI is nondisplaced. ABDOMEN: Soft, nontender, nondistended. EXTREMITIES: No cyanosis, clubbing or edema. 2+ pulses bilaterally. SKIN: Warm and dry. There is some bruising about his extremities. NEUROLOGIC: Awake, alert and oriented x3. Good historian. No focal deficits. No facial drooping. Speech is clear and appropriate. Moving all extremities spontaneously with equal strength. DIAGNOSTIC STUDIES CARDIOLOGY STUDIES: Twelve lead EKG shows atrial fibrillation with a ventricular rate of 96. Inferior Q waves. No acute changes. LABORATORY STUDIES: Sodium 143, potassium 4.5, chloride 108, CO2 26, BUN 22, creatinine 1.8. This is stable from October and November where his creatinine was 1.7 and 1.8, glucose 107, total protein 7, albumin 3.8, AST 19, ALT 18, alk phos 56. Troponin less than 0.03. Repeat less than 0.03. Lipid studies - cholesterol is 187, triglycerides 56, LDL 107, HDL 69, TSH 4.43. Point of care troponin in the emergency room less than 0.05, repeat less than 0.05. Hemoglobin 15.4, hematocrit 46.9, white blood cell 6.3, platelet count 174. ASSESSMENT AND PLAN 1. Angina: Recent stenting 11/14/2016 with a drug-eluting stent to the PLV branch of the right coronary artery. 2. History of hypertension, blood pressure is currently low. 3. Chronic kidney disease with stable creatinine. The patient is negative for myocardial infarction on this admission. We will stop his heparin drip. We will repeat a troponin and an EKG in the a.m. We will add Protonix 40 mg daily. We will increase his sotalol to 60 mg twice daily. Patient remains stable. He will be discharged home Unit #: [id number] #: [id number] Patient: BETTIE HOLLOWAY in the a.m. The patient was seen by Dr. Vizcaino. Dictated by Tanna AuPVivi for Juan Jose Wallace/ewa TD: 01/29/2017 13:10 JOB #: [id number] HISTORY AND PHYSICAL Page 1 of 1 X X HISTORY AND PHYSICAL
--- NOTE | ~2017-01-28 | EKG ---
PATIENT: BETTIE GIANG UNIT #: [id number] Ventricular Rate: 96 BPM Atrial Rate: 125 BPM QRS Duration: 86 ms Q-T Interval: 378 ms QTC Calculation(Bezet): 477 ms Calculated R [place]: 4 degrees Calculated T [place]: -42 degrees Diagnosis Line: Atrial fibrillation Diagnosis Line: Low voltage QRS Diagnosis Line: Inferior infarct (cited on or before 15-NOV-2016) Diagnosis Line: Abnormal ECG Diagnosis Line: When compared with ECG of 15-NOV-2016 05:48, Diagnosis Line: Atrial fibrillation has replaced Sinus rhythm Diagnosis Line: Vent. rate has increased BY 43 BPM Diagnosis Line: T wave inversion less evident in Inferior leads Diagnosis Line: Confirmed by KAROL BHANDARI MD ([id number]) on Diagnosis Line: 01/29/2017 11:15:22 PM INTERPRETING MD: ELISABET VIRGEN
[~2017-01-28 14:55] MED LIST changes: +CLOPIDOGREL75 MG PO
[2017-01-28 15:47] LABS: POC - CKMB 2.4 ng/mL (0.0-7.9); POC - TROPONIN <0.05 ng/mL (<=0.05)
[2017-01-28 16:08] LABS: BASOPHIL% 0.5 % (0-2.5); EOSINOPHIL# 0.2 X10e3 (0-0.7); EOSINOPHIL% 3.3 % (0.0-7.0); HEMATOCRIT 43.2 % (38.0-50.0); HEMOGLOBIN 14.3 gm/dL (13.0-16.0); LYMPHOCYTE# 1.9 X10e3 (1.0-3.5); LYMPHOCYTE% 28.1 % (17.0-45.0); MEAN CELL VOLUME 96.4 FL (83-96); MEAN CORPUSCULAR HEMOGLOBIN 31.9 PG (28-34); MEAN CORPUSCULAR HGB CONC 33.1 g/dL (30-36); MEAN PLATELET VOLUME 7.9 FL (6.5-11.5); MONOCYTE# 0.6 X10e3 (0-1.0); MONOCYTE% 8.1 % (3.0-12.0); NEUTROPHIL# 4.1 X10e3 (1.5-7.1); PLATELET COUNT 169 X10e3 (140-420); RED BLOOD COUNT 4.48 X10e (3.90-5.60); RED CELL DISTRIBUTION WIDTH 13.3 % (11.0-15.5); WHITE BLOOD COUNT 6.8 X10e3 (4.0-10.5)
[2017-01-28 16:09] LABS: DIFF IND NO
[2017-01-28 16:38] LABS: ALBUMIN SERUM 3.8 g/dL (3.5-5.0); ALKALINE PHOSPHATASE 56 U/L (32-92); ALT (SGPT) 18 U/L (10-40); AST (SGOT) 19 U/L (10-42); BILIRUBIN, DIRECT <0.1 mg/dL (0.0-0.2); BILIRUBIN,INDIRECT 0.8 mg/dL (0.0-0.9); BILIRUBIN,TOTAL 0.9 mg/dL (0.2-2.0); BLOOD UREA NITROGEN 22 mg/dL (9-23); BUN/CREATININE RATIO 12.22; CARBON DIOXIDE 24 mmol/L (22-31); CHLORIDE 109 mmol/L (100-111); CREATININE SERUM 1.8 mg/dL (0.6-1.4); GLOM FILT RATE Estimated 34.5 mL/min (>60); GLUCOSE FASTING 127 mg/dL (70-110); POTASSIUM 4.1 mmol/L (3.5-5.1); SODIUM 140 mmol/L (135-145)
[2017-01-28 17:01] LABS: POC - CKMB <1.0 ng/mL (0.0-7.9); POC - TROPONIN <0.05 ng/mL (<=0.05)
[2017-01-29 01:25] LABS: CK TOTAL 51 IU/L (36-174)
[2017-01-29 07:59] LABS: HEMATOCRIT 46.9 % (38.0-50.0); HEMOGLOBIN 15.4 gm/dL (13.0-16.0); MEAN CELL VOLUME 96.3 FL (83-96); MEAN CORPUSCULAR HEMOGLOBIN 31.7 PG (28-34); MEAN CORPUSCULAR HGB CONC 32.9 g/dL (30-36); MEAN PLATELET VOLUME 7.6 FL (6.5-11.5); RED BLOOD COUNT 4.87 X10e (3.90-5.60); RED CELL DISTRIBUTION WIDTH 13.2 % (11.0-15.5); WHITE BLOOD COUNT 6.3 X10e3 (4.0-10.5)
[2017-01-29 08:31] LABS: BUN/CREATININE RATIO 12.22; CALCIUM SERUM 9.4 mg/dL (8.4-10.2); CREATININE SERUM 1.8 mg/dL (0.6-1.4); GLOM FILT RATE Estimated 34.5 mL/min (>60); POTASSIUM 4.5 mmol/L (3.5-5.1)
[2017-01-30] MEDS ORDERED: ASPIRIN81 M2 PO (10:53)
[2017-01-30] MEDS ORDERED: PEPCID AC20 M2 PO (10:55)
== END 2017-01-30 11:52 | disposition home or self-care (01) ==
LOC: CED 14:55 → CEDOF 17:15 → CED 17:49 → C3A PCU 20:39 → CEDOF 20:39 → C3A PCU 20:39
PROVIDERS: Emergency Medicine; Internal Medicine Cardiovascular Disease
DX: R07.89 Other chest pain (principal); I48.2 Chronic atrial fibrillation; I25.2 Old myocardial infarction; Z95.5 Presence of coronary angioplasty implant and graft; E78.5 Hyperlipidemia, unspecified; I12.9 Hypertensive chronic kidney disease with stage 1 through stage 4 chronic kidney disease, or unspecified chronic kidney disease; N18.9 Chronic kidney disease, unspecified; Z79.01 Long term (current) use of anticoagulants; Z79.899 Other long term (current) drug therapy; Z82.49 Family history of ischemic heart disease and other diseases of the circulatory system; Z82.3 Family history of stroke
CPT/HCPCS: 36415; 80048; 80061; 80076; 82550; 82553; 84443; 84484; 85025; 85027; 85730; 93005; 99285; G0378; J1644